=== PATIENT | male | born 1995 | race Two or more races ===

== ENCOUNTER 2025-02-13 08:48 | Emergency (ER) | payer MEDICAID ==
[~2025-02-13] VITALS: Ht 185.4 cm; Wt 93.5 kg
[2025-02-13 09:02] VITALS: BP 147/83; PULSE 83; RESP 18; TEMP 97.6; O2SAT 99
[2025-02-13] MEDS ORDERED: TETanus/Pertussis (Acell)/Diphther VAC/PF (Tdap-Adult) 0.5ml syringe IMVAC ONE (09:45)
--- NOTE | 2025-02-13 09:49 | Physician Documentation ---
History of Present Illness General Chief Complaint: Foreign body Stated Complaint: SPLINTER Time Seen by MD: 09:11 History of Present Illness Initial Comments This 29-year-old male presents requesting a splinter removed from his left middle finger, patient reports he was lifting out a would post proximally an hour prior to arrival and felt a large splinter go into his finger and he was u nable to pull it out at home. Patient reports unknown last tetanus vaccine. Patient reports no other acute symptoms or concerns. Medication Reconciliation Allergies: Coded Allergies: No Known Allergies (Unverified , 02/13/25) Past Medical History Past Medical History: No Pertinent History Review of Systems ROS Splinter in finger as stated above in the HPI, otherwise all systems are re viewed and negative. Physical Exam Physical Exam Vital Signs: Temperature: 97.6, Source: Temporal, Heart Rate: 83, Respiratory Rate: 18, BP: 147/83, Pulse Oximetry: 99, Weight: 93.550 Physical Exam VITALS: Reviewed and as above. GENERAL: Alert, nontoxic appearing, no apparent distress. RESPIRATORY: No increased work of breathing, no respiratory distress, speaking in full clear sentences SKIN: Wooden foreign body to the left middle finger Procedures Skin Foreign Body Removal : Anesthesia: none Foreign Body Removal: removed Tolerated Procedure Well?: yes, no complications Procedure Note An 18 gauge needle and splinter forceps were used to remove a approximately 7 mm superficial wooden foreign body from the pad of the left middle finger without complications and evidence of retained foreign body. The area was washed thoro ughly with warm soap and water after removal. Progress Results/Orders Results/Orders Completed Orders - [facility] [employer] [facility] Tetanus/Pertuss/Diph Acell/Pf (Boostrix (02/13/25 09:45) Vital Signs 02/13/25 09:02 Temp 97.6 Pulse 83 Resp 18 B/P (MAP) 147/83 Pulse Ox 99 Medical Decision Making Findings This 29-year-old male presented with a splinter to his left middle finger that he was unable to remove at home, splinter was successfully removed in a single piece without evidence of retained foreign body, he has no evidence of involvement of tendon or nerve, finger was neurovascularly intact. Splinter was superficial therefore antibiotics not indicated, wound was washed thoroughly after splint removal. Patient Tdap was updated. Patient is appropriate for outpatient follow up. Patient provided wound care instructions and return to care precautions which he verbalized understanding of. Differential Diagnosis Flexor tenosynovitis, abscess, cellulitis, retained foreign body, neurovascular injury Departure Time of Disposition: 09:49 Disposition: 01 HOME / SELF CARE / HOMELESS Impression: Primary Impression: Splinter in skin Condition: Improved Discharge Instructions: Skin Foreign Body Additional Instructions: Keep the area clean dry and covered watch for signs of infection such as swelling, pain, redness, or discharge. Please follow up with your primary care provider in the next few days. Please return to the emergency department for any new or worsening concerning symptoms. Referrals: NO PRIMARY CARE PROVIDER (PCP) Education Educated: Patient Educated regarding: diagnosis, treatment, prognosis, need for follow up Signature Scribe Signature: No scribe Attestation: The note accurately reflects work and decisions made by me.ALYSE Hidalgo 02/13/25 20:57 [facility] February 13, 2025 09:49
== END 2025-02-13 10:06 | disposition home or self-care (01) ==
LOC: ER 08:49
DX: S60.453A Superficial foreign body of left middle finger, initial encounter (principal); W45.8XXA Other foreign body or object entering through skin, initial encounter; Y93.89 Activity, other specified; Y92.89 Other specified places as the place of occurrence of the external cause; Y99.8 Other external cause status
CPT/HCPCS: 10120; 99285